=== PATIENT | female | born 1995 | race African-American/Black ===

== ENCOUNTER 2016-09-23 04:48 | Emergency (ER) ==
[2016-09-23 04:58] VITALS: BP 108/059
--- NOTE | 2016-09-23 05:10 | PROVIDER DOCUMENTATION ---
HPI-Respiratory General - General Chief Complaint: Cold Symptoms Stated Complaint: COLD SX Time Seen by Provider: 09/23/16 05:00 Source: patient Allergies/Adverse Reactions: Patient Allergies Allergy/AdvReac Type Severity Reaction Status Date / Time aspirin Allergy ANAPHYLAXIS Verified 09/06/16 04:44 - History of Present Illness-Resp Nature of Presenting Problem: pt states that for about the last 3 days she feels like her chest is closing in. She reports sweats and subjective fever. No cough, sore throat or runny nose. No wheezing Review of Systems - Adult - REVIEW OF SYSTEMS - ADULT Constitutional: reports: fever (subjective) Eyes: denies: discharge Ears, Nose, Mouth & Throat: denies: ear pain, sinus problem, throat pain, throat swelling Cardiovascular: reports: chest pain. denies: palpitations Respiratory: reports: shortness of breath. denies: cough, pleurisy, wheezing Gastrointestinal: denies: abdominal pain, diarrhea, nausea, vomiting Genitourinary: denies: dysuria, frequency, flank pain Musculoskeletal: denies: back pain Integumentary: denies: rash Neurological: denies: headache/migraines, numbness, paresthesia Psychiatric: denies: anxiety All Other Systems: Reviewed and Negative Past History - Adult - PAST MEDICAL HISTORY-ADULT Review of Records: reports: Old Records Reviewed, Nursing Assessment Review, Medications Reviewed, Social history reviewed & non-contributory. Major Childhood Illnesses: reports: denies history Cardiovascular: reports: denies history Respiratory: reports: asthma Gastrointestinal: reports: denies history Genitourinary: reports: denies history Musculoskeletal: reports: denies history Neurological: reports: denies history Psychiatric: reports: denies history Endocrine/Immune: reports: denies history, anemia - PRIOR SURGERIES/PROCEDURES Surgical/Procedure History: reports: orthopedic (extremity), other (right ovary removed) - IMMUNIZATION STATUS Childhood Immunizations: See Nurse Assessment Flu Vaccine: See Nurse Assessment - FAMILY HISTORY Family History: reviewed, not pertinent Physical Exam-General - PHYSICAL EXAM-ADULT Initial Vital Signs Reviewed: Yes - CONSTITUTIONAL General Appearance: appears well, alert, no apparent distress - EYES Eyes: pink conjunctivae - HEAD, EARS, NOSE, MOUTH & THROAT HENMT: TMs normal, pharynx normal - NECK Neck: non-tender, full range of motion, supple, normal inspection. negative: lymphadenopathy - RESPIRATORY Respiratory: lungs clear, normal breath sounds, no pleuratic chest pain, no respiratory distress, no accessory muscle use. 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 nml as tested, grossly normal, no motor/sensory deficits - PSYCHIATRIC Psych/Mental Status: normal mood/affect, normal thought content, normal thought process, oriented x 3 Progress - PLAN OF CARE/RESULTS Progress/Plan/Lab Results: Orders Category Date Time Status CHEST-2 VIEWS [RAD] Stat Exams 09/23/16 05:06 Taken Ibuprofen [Motrin] Med 09/23/16 05:27 Once 800 mg PO NOW ONE Vital Signs Temp Pulse Resp BP Pulse Ox 09/23/16 04:54 98.5 F 86 18 108/059 100 aspirin Allergy (Verified 09/06/16 04:44) ANAPHYLAXIS Guaifenesin/Codeine [Robitussin-AC] 10 ml PO Q4H PRN PRN #4 oz 09/06/16 - XRAY 1 XRAY Study: Chest Impression: Normal Departure - Departure Time of Disposition Order: 05:27 DIAGNOSIS: Costochondritis Disposition: HOME 01 Certified Medical Emergency: Emergent Condition: Good Additional Instructions: ED Follow Up Instructions: You have been treated by a care provider in the Emergency Department. These instructions are being provided to you so you can have an understanding of how to care for yourself upon discharge. Upon discharge from the Emergency Department, you are responsible for making arrangements for follow-up care by a physician of your choice. Take all prescribed medications as directed. Return to the Emergency Department immediately for any new or worsening symptoms. You may call the Physician Referral phone number at [phone] to obtain a list of Physicians who are taking new patients. Prescriptions: Ibuprofen [Motrin] 800 mg PO Q8H PRN PRN #30 tablet PRN Reason: Pain
[2016-09-23] MEDS ORDERED: MOTRIN PO ONE (05:27)
--- NOTE | 2016-09-23 10:33 | Diag Imaging Result Document ---
PROCEDURE NAME: CHEST-2 VIEWS - 09/23/2016 PA AND LATERAL RADIOGRAPH OF THE CHEST: COMPARISON: 01/30/2016. FINDINGS: The lungs are grossly clear. There is no discrete pleural fluid collection or evidence of pneumothorax. The cardiomediastinal silhouette and upper airway are grossly unremarkable. IMPRESSION: No evidence of acute chest pathology.
== END 2016-09-23 05:40 | disposition home or self-care (01) ==
LOC: P.ED 04:48
DX: M94.0 Chondrocostal junction syndrome [Tietze] (principal); R50.9 Fever, unspecified; R07.89 Other chest pain; R06.02 Shortness of breath
CPT/HCPCS: 71020; 99283